=== PATIENT | male | born 1950 | race Caucasian/White ===

== ENCOUNTER 2018-04-29 09:27 | Emergency (ER) | payer OTHER, MEDICAID ==
[~2018-04-29] VITALS: Ht 175.3 cm; Wt 87.0 kg
[2018-04-29] MEDS ORDERED: SODIUM CHLORIDE 0.9% 1,000 ML IV ONE (10:50)
[2018-04-29] MEDS ORDERED: KETOROLAC 30MG/ML VIAL IV STA (10:50)
[2018-04-29 12:01] LABS: BASOPHILS % 0.9 % (0.0-2.0); EOSINOPHILS % 1.2 % (0.0-5.0); HEMATOCRIT. 36.4 % (42.0-52.0); HEMOGLOBIN. 12.2 g/dL (14.0-18.0); LYMPHOCYTES % 23.9 % (20.0-50.0); MEAN CORPUSCULAR HEMOGLOBIN 32.9 pg (28.0-32.0); MEAN CORPUSCULAR VOLUME 97.9 fL (80.0-94.0); MEAN PLATELET VOLUME 7.2 fl (7.4-10.4); MONOCYTES % 9.5 % (2.0-8.0); NEUTROPHILS % 64.5 % (40.0-76.0); PLATELET 232 x1000/uL (130-400); RED BLOOD CELL COUNT 3.72 mill/uL (4.7-6.1); RED CELL DISTRIBUTION WIDTH 13.4 % (11.6-14.6)
[2018-04-29 12:07] LABS: CHLORIDE 106 mEq/L (98-107)
[2018-04-29 12:08] LABS: PROTHROMBIN TIME 10.6 sec (9.4-11.6)
[2018-04-29 14:53] VITALS: BP 112/70
== END 2018-04-29 14:54 | disposition home or self-care (01) ==
LOC: ER 09:27
DX: M08.8 Other juvenile arthritis (principal); E78.00 Pure hypercholesterolemia, unspecified; I10 Essential (primary) hypertension; Z88.0 Allergy status to penicillin
CPT/HCPCS: 36415; 73130; 80053; 83605; 84550; 85025; 85610; 85651; 86140; 87040; 96361; 96374; 99285; J1885; J7030